=== PATIENT | female | born 1935 | race Asian ===

== ENCOUNTER 2018-05-15 06:28 | Day surgery (SDC) | payer MEDICARE, OTHER ==
[2018-05-15] MEDS ORDERED: IV NORMAL SALINE 1000 ML BAG IV ONE (06:29)
[2018-05-15] MEDS ORDERED: hydrALAZINE HCL 20 MG/1 ML VIAL IV ONE (06:29)
[2018-05-15] MEDS ORDERED: CYCLOPENTOLATE 1% OPHT DROP 2 ML BOTTLE ONE (06:47)
[2018-05-15] MEDS ORDERED: PHENYLEPHRINE 2.5% OPHT DROP 2 ML BOTTLE ONE (06:47)
[2018-05-15] MEDS ORDERED: KETOROLAC 0.5% OPHT DROP 3 ML BOTTLE ONE (06:47)
[2018-05-15] MEDS ORDERED: CIPROFLOXACIN 0.3% OPHT DROP 2.5 ML BOTTLE ONE (06:47)
[2018-05-15] MEDS ORDERED: TROPICAMIDE 1% OPHT DROP 3 ML BOTTLE ONE (06:47)
[2018-05-15] MEDS ORDERED: BALANCED SALT IRRIG SOLN COMB1 500 ML, EPINEPHRINE-PF 1:1000 0.5 MG IO ONE ×2 (07:00)
[2018-05-15] MEDS ORDERED: MOXIFLOXACIN HCL 3 ML OPHT DROPS ONE (07:13)
[2018-05-15] MEDS ORDERED: BALANCED SALT IRRIG SOLN COMB2 15 ML IRRIG.SOLN ONE (07:13)
[2018-05-15] MEDS ORDERED: TETRACAINE HCL 0.5% OPHT DROP 2 ML BOTTLE ONE (07:13)
[2018-05-15] MEDS ORDERED: LIDOCAINE-MPF 2% 5 ML VIAL ONE (07:13)
[2018-05-15] MEDS ORDERED: NEO/POLYMYX B/DEXAME OPHT OINT 3.5 GM TUBE ONE (07:13)
[2018-05-15] MEDS ORDERED: TIMOLOL MALEATE 0.5% OPHT DROP 5 ML BOTTLE ONE (07:13)
[2018-05-15] MEDS ORDERED: ACETYLCHOLINE CHLORIDE 1% OPHT 1 EA KIT ONE (07:14)
[2018-05-15] MEDS ORDERED: HYALURONATE SODIUM 8.5 MG/0.85 ML DISP.SYRIN ONE (07:14)
[2018-05-15] MEDS ORDERED: HYALURONATE SODIUM 12.8 MG/0.8 ML DISP.SYRIN ONE (07:14)
[2018-05-15] MEDS ORDERED: HYALURONIDASE,OVINE 200 UNITS/ML VIAL ONE (07:14)
[2018-05-15] MEDS ORDERED: ATROPINE SULFATE 1% OPHT DROP 2 ML ONE (07:29)
[2018-05-15] MEDS ORDERED: FENTANYL CITRATE 100 MCG/2 ML AMPUL ONE (07:37)
[2018-05-15] MEDS ORDERED: ONDANSETRON 4 MG/2 ML VIAL ONE (10:01)
== END 2018-05-15 10:44 | disposition home or self-care (01) ==
LOC: DS 06:28
PROVIDERS: ATTEND Ophthalmology
DX: E11.36 Type 2 diabetes mellitus with diabetic cataract (principal); I12.9 Hypertensive chronic kidney disease with stage 1 through stage 4 chronic kidney disease, or unspecified chronic kidney disease; E11.22 Type 2 diabetes mellitus with diabetic chronic kidney disease; N18.3 Chronic kidney disease, stage 3 (moderate); I25.10 Atherosclerotic heart disease of native coronary artery without angina pectoris; D64.9 Anemia, unspecified; G30.9 Alzheimer's disease, unspecified; F02.80 Dementia in other diseases classified elsewhere, unspecified severity, without behavioral disturbance, psychotic disturbance, mood disturbance, and anxiety
CPT/HCPCS: 71045; A4663; J0171; J0360; J2405; J3010; J3471; J3490; J7030; J7321; V2632